=== PATIENT | female | born 1995 | race African-American/Black ===

== ENCOUNTER 2017-05-03 13:48 | Emergency (ER) | payer OTHER ==
[~2017-05-03] VITALS: Ht 170.2 cm; Wt 108.2 kg
[2017-05-03 13:51] VITALS: BP 142/76; PULSE 87; RESP 16; TEMP 98.7; O2SAT 100
--- NOTE | 2017-05-03 15:06 | PD ---
HPI Chief Complaint: Headache Time Seen by Provider: 14:56 Travel History International Travel<30 days: No Contact w/Intl Traveler<30days: No Traveled to known affect area: No History of Present Illness HPI 31-year-old female complains of headache. Patient states that she has history intermittent headache for the past few years. Patient states the headache is throbbing headache localized to left side the head area patient denies any visual change. Patient denies any photophobia. Patient denies any nausea vomiting. Patient denies any neck pain. Patient denies any recent head injury. Patient denies any chest pain or shortness of breath. Patient denies abdominal pain. Patient denies any focal weakness or numbness of extremity. PFSH Past Medical History ?: Not LMP: on now Social History Tobacco Use: No Allergies-Medications (Allergen,Severity, Reaction): Coded Allergies: No Known Allergies (Unverified , 05/03/17) Reported Meds & Prescriptions Reported Meds & Active Scripts Active Fioricet (Afmamabyjm-Lkgyxhedeboqh-Gtjwiddz) 50-300-40 Mg Cap 1-2 Cap PO Q6H PRN Review of Systems General / Constitutional: No: Fever Eyes: No: Visual changes HENT: Positive: Headaches Cardiovascular: No: Chest Pain or Discomfort Respiratory: No: Shortness of Breath Gastrointestinal: No: Abdominal Pain Genitourinary: No: Dysuria Musculoskeletal: No: Pain Skin: No Rash Neurologic: No: Weakness Psychiatric: No: Depression Endocrine: No: Polydipsia Hematologic/Lymphatic: No: Easy Bruising Physical Exam Narrative GENERAL: Well-nourished, well-developed patient. SKIN: Focused skin assessment warm/dry. HEAD: Normocephalic. EYES: No scleral icterus. No injection or drainage. Patient has cataract on the left eye. Pupil left side 1.5 mm reactive. Right pupil 2 mm reactive. NECK: Supple, trachea midline. No JVD or lymphadenopathy. No meningismus CARDIOVASCULAR: Regular rate and rhythm without murmurs, gallops, or rubs. RESPIRATORY: Breath sounds equal bilaterally. No accessory muscle use. GASTROINTESTINAL: Abdomen soft, non-tender, nondistended. MUSCULOSKELETAL: No cyanosis, or edema. BACK: Nontender without obvious deformity. No CVA tenderness. Neurologic exam: Patient's awake and alert oriented 3. No obvious focal neurological deficit. Data Data Last Documented VS Vital Signs Date Time Temp Pulse Resp B/P (MAP) Pulse Ox O2 Delivery O2 Flow Rate FiO2 05/03/17 16:22 05/03/17 13:51 98.7 [address] Brain W/O Iv Contrast(Rout) (05/03/17 15:03) Ed Discharge Order (05/03/17 16:14) MDM Medical Decision Making Medical Screen Exam Complete: Yes Emergency Medical Condition: Yes Interpretation(s) Last Impressions Head CT 05/03/17 1503 Signed Impressions: Service Date/Time: Wednesday, May 03, 2017 15:16 - CONCLUSION: 1. No acute intracranial abnormality identified. Kenneth Jennings MD Differential Diagnosis Differential diagnosis including migraine headache, tension headache, cluster headache. Narrative Course 21-year-old female with headache. History of recurrent headache. Diagnosis Primary Impression: Cephalgia Qualified Codes: R51 - Headache Patient Instructions: General Instructions Additional Instructions: Take medications as needed. Follow-up with personal physician and neurologist. Return if worse. Med/Other Pt SpecificInfo: Prescription(s) given Scripts Gidlvgnbnx-Kkmxzqiecnfvb-Vpicmnsr (Fioricet) 50-300-40 Mg Cap 1-2 CAP PO Q6H Y for HEADACHE, #30 CAP 0 Refills Prov: Randy Lara MD 05/03/17 Disposition: 01 DISCHARGE HOME Condition: Stable Randy Lara MD May 03, 2017 15:06
--- NOTE | 2017-05-03 15:55 | RADRPT ---
EXAM DATE/TIME: 05/03/2017 15:16 [facility] COMPARISON: No previous studies available for comparison. INDICATIONS : Headaches for one day. RADIATION DOSE: 56.77 CTDIvol (mGy) MEDICAL HISTORY : Headaches. SURGICAL HISTORY : None. ENCOUNTER: Initial ACUITY: 1 day PAIN SCALE: 8/10 LOCATION: Bilateral cranial TECHNIQUE: Multiple contiguous axial images were obtained of the head. Using automated exposure control and adj ustment of the mA and/or kV according to patient size, radiation dose was kept as low as reasonably a chievable to obtain optimal diagnostic quality images. DICOM format image data is available electro nically for review and comparison. FINDINGS: CEREBRUM: The ventricles are normal for age. No evidence of midline shift, mass lesion, hemorrhage or acute in farction. No extra-axial fluid collections are seen. POSTERIOR FOSSA: The cerebellum and brainstem are intact. The 4th ventricle is midline. The cerebellopontine angle i s unremarkable. EXTRACRANIAL: The visualized portion of the orbits is intact. SKULL: The calvaria is intact. No evidence of skull fracture. CONCLUSION: 1. No acute intracranial abnormality identified. Kenneth Jennings MD on May 03, 2017 at 15:51 Board Certified Radiologist. This report was verified electronically.
[2017-05-03] MEDS ORDERED: BUTA1CAP PO (16:14)
== END 2017-05-03 16:26 | disposition home or self-care (01) ==
LOC: NEPD 13:48
DX: R51 Headache (principal)
CPT/HCPCS: 70450; 99284